=== PATIENT | male | born 1945 | race American Indian/Alaskan Native ===

== ENCOUNTER 2018-07-27 11:09 | Day surgery (SDC) | payer MEDICARE ==
[~2018-07-27 11:09] MED LIST: NACL 0.9% 1000 ML 1,000 ML IV SCH
[2018-07-27] MEDS ORDERED: DIPRIVAN 10 MG/ML IV ONE ×3 (12:18)
--- NOTE | 2018-07-27 12:23 | Anesthesia Day of Surgery ---
Anesthesia Day of Surgery - Day of Surgery Patient Examined: Yes Patient H&P Reviewed: Yes Patient is NPO: Yes
--- NOTE | 2018-07-27 12:23 | Anesthesia Consultation ---
Anesthesia Consult and Med Hx Date of service: 07/27/18 - Airway Anesthetic Teeth Evaluation: Good ROM Head & Neck: Adequate Mental/Hyoid Distance: Adequate Mallampati Class: Class II Intubation Access Assessment: Good - Pulmonary Exam CTA: Yes - Cardiac Exam Cardiac Exam: RRR - Pre-Operative Health Status ASA Pre-Surgery Classification: ASA2 Proposed Anesthetic Plan: MAC - Cardiovascular System Hx Hypertension: Yes
[2018-07-27] MEDS ORDERED: WATER FOR IRRIG STERILE IR ONE ×2 (12:32→13:25)
[2018-07-27] MEDS ORDERED: WATER FOR IRRIG STERILE ONE (12:32)
--- NOTE | 2018-07-27 13:02 | Procedure Note ---
Date of procedure: 07/27/18 Pre-op diagnosis: Inflammatory Bowel Disease Post-op diagnosis: other (Colitis most pronounced in the Rectum and Left Colon/Solitary Transverse Colon Polyp (removed by cold biopsy)/ Minor,Proximal Colon Polyp/R/O Ileitis/ Mild to Moderate Internal Hemorrhoid) Procedure: Colonoscopy with Biopsy Anesthesia: [facility] [place] Surgeon: IVANA VIZCARRA Estimated blood loss: minimal Pathology: list Specimen disposition: to lab Condition: stable Disposition: same day (Continue with present treatment and Rowasa Enema. Avoid aspirin and NSAID for 6 days and follow up in 1 to 2 weeks ([phone]).)
--- NOTE | 2018-07-27 13:09 | Operative Report ---
PROCEDURE: Colonoscopy with biopsy. INDICATIONS: A 72-year-old -[place] gentleman with an underlying history of inflammatory bowel disease. Colonoscopy was done to make sure that his inflammatory bowel disease had not worsened and that there was no associated dysplasia. DESCRIPTION OF PROCEDURE: Procedure was done after getting informed consent with MAC anesthesia. Initial rectal examination was unremarkable. Instrument was passed through the rectum onto the cecum, which was identified with the ileocecal valve and the appendiceal orifice. Visualization was fair. The terminal ileum was intubated, showed normal mucosa. Biopsy was done to rule out for possible ileitis. Cecum, ascending colon showed normal mucosa. There were a few minor diverticula noted in the proximal transverse colon and the mucosa appeared normal. Random biopsies were done to rule out for possible dysplasia. The left colon showed varying degrees of inflammation, most pronounced in the rectum with some areas of ulceration. Biopsies were done from the left colon as well as from the rectum. There was some bleeding that was noted from the biopsies in the left colon. The patient is said to have been taking NSAIDs, which may have aggravated the colitis and the reason for the bleeding and the rectum showed mild to moderate internal hemorrhoids on the retroverted view. There was some mild trauma of the mucosa secondary to the retroflexion. There was no complication associated with the procedure. There was minimal to slight bleeding associated with the biopsies. ASSESSMENT: Inflammatory bowel disease, most pronounced in the rectum and in the left colon and mild diverticular disease. In addition, there was a polyp that was also noted in the transverse colon, which was removed by cold biopsy and biopsy was done to rule out for dysplasia as well as ileitis. Again, there was minimal bleeding. PLAN: Treat the patient with Rowasa enema. If the patient does not improve, the patient may require prednisone. Follow up in 1-2 weeks' time. Bonny MARADIAGA was in the room for the entirety of the procedure. JOB# [id number] YAAKOV/ELIZABETH
[2018-07-27] MEDS ORDERED: XYLOCAINE 2% UROJET ONE (13:25)
[2018-07-27 13:35] VITALS: BP 111/72
[2018-07-27] MEDS ORDERED: XYLOCAINE MPF 2% ONE (14:00)
[2018-07-27] MEDS ORDERED: INFANTS' GAS RELIEF PO ONE (14:47)
== END 2018-07-27 11:10 | disposition home or self-care (01) ==
LOC: GIO 11:09
DX: Z12.11 Encounter for screening for malignant neoplasm of colon (principal); K63.5 Polyp of colon; K63.89 Other specified diseases of intestine; K62.89 Other specified diseases of anus and rectum; K57.30 Diverticulosis of large intestine without perforation or abscess without bleeding; K64.8 Other hemorrhoids; M19.90 Unspecified osteoarthritis, unspecified site; I10 Essential (primary) hypertension; Z79.899 Other long term (current) drug therapy; Z98.49 Cataract extraction status, unspecified eye
CPT/HCPCS: 45380; 88305; J2704; J7030

== ENCOUNTER 2019-12-22 07:57 | Day surgery (SDC) | payer MEDICARE ==
[~2019-12-22 07:57] MED LIST changes: -NACL 0.9% 1000 ML 1,000 ML IV SCH; +SODIUM CHLORIDE 0.9% 1000 ML 1,000 ML IV SCH
[2019-12-22] MEDS ORDERED: LIDOCAINE MPF (2%) 20 MG/1 ML VIAL 5 ML ONE (08:00)
[2019-12-22] MEDS ORDERED: SODIUM CHLORIDE 0.9% 1000 ML 1,000 ML ONE (08:02)
--- NOTE | 2019-12-22 09:13 | Anesthesia Day of Surgery ---
Anesthesia Day of Surgery - Day of Surgery Patient Examined: Yes Patient H&P Reviewed: Yes Patient is NPO: Yes
--- NOTE | 2019-12-22 09:14 | Anesthesia Consultation ---
Anesthesia Consult and Med Hx Date of service: 12/22/19 - Airway Anesthetic Teeth Evaluation: Good ROM Head & Neck: Adequate Mental/Hyoid Distance: Adequate Mallampati Class: Class II Intubation Access Assessment: Good - Pre-Operative Health Status ASA Pre-Surgery Classification: ASA2 Proposed Anesthetic Plan: MAC - Cardiovascular System Hx Hypertension: Yes - Gastrointestinal Hx Gastroesophageal Reflux Disease: No (Ulcerative Colitis)
[2019-12-22] MEDS ORDERED: propofoL 200 MG/20 ML VIAL IV ONE ×3 (09:20→09:49)
[2019-12-22] MEDS ORDERED: fentaNYL 100 MCG/2 ML INJ ONE (09:42)
--- NOTE | 2019-12-22 10:06 | Procedure Note ---
Date of procedure: 12/22/19 Pre-op diagnosis: H/o Ulcerative Colitis Post-op diagnosis: other (Rectal Pseudoplyp/Proctitis/ Left Colon Colitis) Procedure: Colonoscopy with Biopsy Anesthesia: MAC Surgeon: IVANA VIZCARRA Estimated blood loss: minimal Pathology: list Specimen disposition: to lab Condition: stable Disposition: same day (Treat with Mesalamin Enema and present treatment. Avoid aspirin and NASID for 5 days; otherwise resume home medication. Follow up in 1 to 2 weeks ([phone]).)
--- NOTE | 2019-12-22 10:11 | Post Anesthesia Evaluation ---
- Post Anesthesia Evaluation Patient Participated: Yes Airway Patent: Yes Stable Respiratory Function: Yes Nausea/Vomiting: No Temp > 96.8F: Yes Pain Manageable: Yes Adequeate Hydration: Yes Anesthesia Complications: No Block Receding Appropriately: Not Applicable Patient on Ventilator: No
[2019-12-22] MEDS ORDERED: ONDANSETRON 4 MG/2 ML INJ IV SCH (10:30)
[2019-12-22 11:35] VITALS: BP 110/70
--- NOTE | 2019-12-22 12:17 | Operative Report ---
PROCEDURE: Colonoscopy with biopsy. INDICATIONS: This is a 74-year-old -[place] gentleman with an underlying history of inflammatory bowel disease of the ulcerative colitis type. Colonoscopy was done to assess the severity of the ulcerative colitis. DESCRIPTION OF PROCEDURE: The procedure was done after getting informed consent with MAC anesthesia. Instrument was passed through the rectum onto the cecum, which was identified by the ileocecal valve and the appendiceal orifice. Visualization was fair to good. The terminal ileum could not be intubated. Random biopsies were done from the cecum and ascending colon, as well as the transverse colon, which showed normal mucosa endoscopically. There was no endoscopic evidence of colitis in the proximal colon and in the transverse colon. In the left colon, however, there were some varying degrees of colitis, more severe in the distal end and the rectal part in the rectum. There was also pseudopolyp that was removed by cold snare polypectomy and removed. Biopsies were done from the rectum. An additional biopsy was done from the left colon to assess for the severity and extent of the colitis. There was minimal bleeding associated with the procedure. No complications associated with the procedure. The patient also was noted to have some mild to moderate internal hemorrhoid. ASSESSMENT: History of inflammatory bowel disease, ulcerative colitis, most pronounced in the distal colon involving the rectum and the left colon. No colitis could be seen beyond the splenic flexure and there was some [id number] internal hemorrhoid present as well. The patient is on ASA compounds and will be continued to take that as well and will also be placed on some mesalamine enemas to help with the distal colitis. The patient will be asked to avoid aspirin and aspirin-related products for the next few days and follow up in the office in 1-2 weeks' time. The procedure was done in the GI lab with assistance of the GI lab team, which included Maya MARADIAGA as well as Tova rivera and with assistance of anesthesia. JOB# [id number] YAAKOV/ELIZABETH
== END 2019-12-22 11:22 | disposition home or self-care (01) ==
LOC: GIO 07:57
DX: K52.89 Other specified noninfective gastroenteritis and colitis (principal); K64.8 Other hemorrhoids; K63.89 Other specified diseases of intestine; K62.1 Rectal polyp; K62.89 Other specified diseases of anus and rectum; I10 Essential (primary) hypertension; M19.90 Unspecified osteoarthritis, unspecified site; Z79.899 Other long term (current) drug therapy; Z87.891 Personal history of nicotine dependence; Z98.49 Cataract extraction status, unspecified eye
CPT/HCPCS: 45380; 45385; 88305; J2405; J2704; J3010; J7030

== ENCOUNTER 2021-01-10 07:18 | Day surgery (SDC) | payer MEDICARE ==
[~2021-01-10 07:18] MED LIST changes: +WATER FOR IRRIG STERILE 1,000 ML BOTTLE ONE; +WATER FOR IRRIG STERILE 250 ML BOTTLE IR ONE
--- NOTE | 2021-01-10 08:08 | Anesthesia Consultation ---
Anesthesia Consult and Med Hx - Airway Anesthetic Teeth Evaluation: Partials ROM Head & Neck: Adequate Mental/Hyoid Distance: Adequate Mallampati Class: Class II Intubation Access Assessment: Good - Pulmonary Exam CTA: Yes - Cardiac Exam Cardiac Exam: RRR - Pre-Operative Health Status ASA Pre-Surgery Classification: ASA2 Proposed Anesthetic Plan: MAC - Pulmonary Hx Smoking: No Hx Asthma: No Hx Sleep Apnea: No - Cardiovascular System Hx Hypertension: Yes - Gastrointestinal Hx Gastroesophageal Reflux Disease: No (Ulcerative Colitis) - Endocrine Hx Renal Disease: No Hx Liver Disease: No Hx Thyroid Disease: No - Other Systems Hx Alcohol Use: Yes (occasionally) Hx Substance Use: No Hx Cancer: No Hx Obesity: No - Additional Comments Anesthesia Medical History Comments: No hx of anesthetic complications
--- NOTE | 2021-01-10 08:08 | Anesthesia Day of Surgery ---
Anesthesia Day of Surgery - Day of Surgery Patient Examined: Yes Patient H&P Reviewed: Yes Patient is NPO: Yes
[2021-01-10] MEDS ORDERED: LIDOCAINE MPF (2%) 20 MG/1 ML VIAL 5 ML ONE (08:40)
[2021-01-10] MEDS ORDERED: propofoL 200 MG/20 ML VIAL IV ONE ×2 (08:40→08:59)
[2021-01-10] MEDS ORDERED: PHENYLEPHRINE/NS 1,000 MCG/10 ML SYRINGE (OR USE) IV ONE (08:49)
--- NOTE | 2021-01-10 09:12 | Procedure Note ---
Date of procedure: 01/10/21 Pre-op diagnosis: H/O Ulcerative Colitis/ R/O dysplasia Post-op diagnosis: other (Colitis (most pronounced in the distal Colon)/ Few Proximal Colon Diverticuli/ Minor,Internal Hemorrhoid) Procedure: Colonoscopy with Biopsy Anesthesia: MAC Surgeon: IVANA VIZCARRA Estimated blood loss: minimal Pathology: list Specimen disposition: to lab Condition: stable Disposition: same day (Treat with Mesalamin (oral) and Mesalamine Enema. Avoid aspirin and NSAID for 5 days; and F/U in one to two weeks ([phone]).)
--- NOTE | 2021-01-10 09:16 | Operative Report ---
DATE OF SURGERY: 01/10/2021 PROCEDURE PERFORMED: Colonoscopy with biopsy. INDICATIONS: This is a 75-year-old -Stateless gentleman who has a history of ulcerative colitis. Colonoscopy was done to assess for the severity and extent of the ulcerative colitis and to see if there was any dysplasia present. DESCRIPTION OF PROCEDURE: Procedure was done after getting informed consent with MAC anesthesia. Initial rectal exam was unremarkable. Instrument was passed through the rectum onto the cecum, which was identified with ileocecal valve and appendiceal orifice. The terminal ileum was not intubated. There were a few diverticula noted in the proximal as well as in the proximal transverse colon. The mucosa appeared normal in the proximal and in the proximal transverse colon. Random biopsies were done from the right colon to assess for the severity of the colitis and for any dysplasia. Random biopsies were also done from the transverse colon. There was some evidence of colitis in the distal transverse colon as well as in the left colon. Biopsy in addition to the transverse colon was also done from the left colon and the rectum. The most pronounced colitis, which was probably mild to moderate, was noted in the rectum. Photodocumentation and biopsy was done, with minimal bleeding. The rectum on the retroverted view showed some minor internal hemorrhoid. ASSESSMENT: 1. History of ulcerative colitis presence. 2. Presence of colitis, most pronounced in the distal colon, which included the rectum and the left colon and this was about mild to moderate in type. Biopsy was done to rule out for dysplasia. 3. Minor diverticular disease noted in the proximal colon and in the proximal transverse colon. 4. Minor internal hemorrhoid. PLAN: To continue treatment with mesalamine as well as mesalamine enemas. Avoid aspirin and aspirin-related products. Await for the biopsy results and have the patient avoid aspirin and aspirin-related products for the next few days. Otherwise, resume home medication and follow up in the office in 1-2 weeks' time. Procedure was done in the GI lab with assistance of the GI lab team, which included the GI nurse, the all terrain vehicle technician and with assistance of Anesthesia. TID: [id number] RECEIPT: [id number] YAAKOV/MEGHA
[2021-01-10 15:29] VITALS: BP 126/73
== END 2021-01-10 07:19 | disposition home or self-care (01) ==
LOC: GIO 07:18
DX: K51.80 Other ulcerative colitis without complications (principal); K57.30 Diverticulosis of large intestine without perforation or abscess without bleeding; K64.8 Other hemorrhoids; K63.89 Other specified diseases of intestine; M19.90 Unspecified osteoarthritis, unspecified site; Z79.899 Other long term (current) drug therapy; Z98.890 Other specified postprocedural states
CPT/HCPCS: 45380; 88305; J2370; J2704; J3490; J7030; J7120; Q0162